=== PATIENT | male | born 1970 | race Caucasian/White ===

== ENCOUNTER 2019-07-02 01:34 | Inpatient (IN) | payer OTHER ==
[2019-07-02] VITALS (60 sets, daily range): BP systolic 43–119; BP diastolic 19–73
[~2019-07-02] VITALS: Ht 177.8 cm; Wt 75.7 kg
--- NOTE | 2019-07-02 01:34 | NUR ---
PT POLA ALS. TAKEN TO BED 10
--- NOTE | 2019-07-02 01:37 | NUR ---
48 Y/O BIBA ALOC. NON VERBAL. TRACH TO VENT. GCS 3. PUPILS UNEQUAL, NO TRACKING NOTED. HYPOTENSIVE. TACHYPNEA. LUNG SOUNDS CRACKLES ON L LOWER LOBE. ANANT CATH ON R UPPER CHEST, GTUBE SITE LEAKING. SKIN IS ASHEN COLOR, WARM AND DRY. ACTIVE BOWEL SOUNDS. NO FEVER NOTED. 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 R LUNG REMOVAL 03/23/19 ALLERGIES: IODINATED CONTRAST MEDIA, PIPERACILLIN, TAZOBACTAM, VANCOMYCIN
--- NOTE | 2019-07-02 01:50 | NUR ---
EKG PERFORMED AT BEDSIDE
--- NOTE | 2019-07-02 01:52 | NUR ---
Dr. Reeder examining patient.
[2019-07-02] MEDS ORDERED: NACL 0.9% 1,000 ML IV ONE (01:56)
--- NOTE | 2019-07-02 01:56 | NUR ---
CALLED RADIOLOGY FOR CODE BRAIN STAT HEAD CT
--- NOTE | 2019-07-02 02:06 | NUR ---
PT TAKEN TO CT
[2019-07-02 02:18] LABS: HEMATOCRIT 24.5 % (36-52); MEAN CORPUSCULAR HEMOGLOBIN 31 pg (27-31); MEAN CORPUSCULAR HGB CONC 33 g/dL (33-37); MEAN CORPUSCULAR VOLUME 93.8 fL (80-94); PLATELET COUNT (AUTO) 124 K/uL (140-450); RED BLOOD CELL COUNT(AUTO) 2.61 MIL/uL (4.20-6.10)
--- NOTE | 2019-07-02 02:22 | NUR ---
PATIENT BACK FROM CT.
[2019-07-02 02:25] LABS: PROTHROMBIN TIME 11.5 secs (10.8-13.4)
[2019-07-02 02:32] LABS: WHITE BLOOD COUNT (AUTO) 2.3 K/uL (4.8-10.8)
[2019-07-02 02:33] LABS: RED CELL DISTRIBUTION WIDTH 20.7 % (11.6-13.7)
[2019-07-02 02:34] LABS: ALBUMIN 2.6 g/dL (3.4-5.0); ANION GAP 19.9 (8-16); CARBON DIOXIDE 21.1 mmol/L (21-32); CREATININE 1.2 mg/dL (0.6-1.3); EOSINOPHILS % (MANUAL) 1 % (0-4); LYMPHOCYTES % (MANUAL) 14 % (20-46); METAMYELOCYTES % 5 % (0-0); MONOCYTES % (MANUAL) 11 % (5-12); TOTAL BILIRUBIN 4.5 mg/dL (0.0-1.0)
[2019-07-02 02:36] LABS: MYELOCYTES % 5 % (0-0)
[2019-07-02 02:44] LABS: APPEARANCE,URINE SL CLOUDY (CLEAR); BILIRUBIN,URINE 2+ (NEGATIVE); BLOOD, URINE 3+ (NEGATIVE); COLOR,URINE DARK YELLOW (YELLOW); LEUKOCYTE ESTERASE ,URINE TRACE (NEGATIVE); NITRITE, URINE POSITIVE (NEGATIVE); UGLUCOSE TRACE (NEGATIVE)
--- NOTE | 2019-07-02 02:49 | NUR ---
CALLED MARTHA S/W KAREN ROBERT REGARDING ADDITONAL PT INFORMATION. PER JAKOB, SHE WOULD FAX OVER ALL DOCUMENTS PERTAINING TO PT CARE.
--- NOTE | 2019-07-02 03:00 | NUR ---
XR AT BEDSIDE.
[2019-07-02] MEDS ORDERED: NACL 0.9% 1,500 ML IV ONE (03:05)
[2019-07-02] MEDS ORDERED: LEVOFLOXACIN 750 MG/D5W PREMIX 150 ML IV ONE (03:05)
--- NOTE | 2019-07-02 03:32 | NUR ---
DR. HERNÁNDEZ AND WOMEN'S MINISTRY DIRECTOR Varsha DE LUNA WITH PT FAMILY IN [facility]
[2019-07-02] MEDS ORDERED: NOREPINEPHRINE 8 MG in DEXTROSE 5% 250 ML IV PRN (04:30)
[2019-07-02] MEDS ORDERED: fentaNYL 0.05 MG/ML VIAL IVP ONE (04:30)
[2019-07-02] MEDS ORDERED: NOREPINEPHRINE 4 MG/4 ML VIAL IV ONE (04:32)
[2019-07-02] MEDS ORDERED: NACL 0.9% 1,000 ML IV SCH ×3 (04:59→06:55)
[2019-07-02] MEDS ORDERED: HYDROcodone/APAP 5/325 MG 1 TAB TAB PO PRN (05:00)
[2019-07-02] MEDS ORDERED: ONDANSETRON 4 MG/2 ML VIAL IM/IVP PRN (05:00)
[2019-07-02] MEDS ORDERED: DOCUSATE SODIUM 100 MG GELCAP PO PRN (05:00)
[2019-07-02] MEDS ORDERED: MORPHINE SULFATE 2 MG/ML SYR IVP PRN (05:00)
[2019-07-02] MEDS ORDERED: ACETAMINOPHEN 325 MG TAB PO PRN (05:00)
[2019-07-02] MEDS ORDERED: DEXTROSE 50% 50 ML SYR IVP PRN (05:35)
[2019-07-02] MEDS ORDERED: ALBUTEROL SULFATE/IPRATROPIU 3 ML SOL IH PRN (05:35)
--- NOTE | 2019-07-02 05:40 | NUR ---
Patient will be admitted to care of DR ARIAS. Admited to ICU. Will go to room ICU - 1 . Belongings list completed. Report given to JIM JONES.
--- NOTE | 2019-07-02 05:45 | NUR ---
RECEIVED PT FROM HANNAH JONES, IN ER. PT TRANSFERRED VIA GURNEY. LETHARGIC, UNABLE TO FOLLOW SIMPLE COMMANDS. RT PUPIL 3MM, SLUGGISH RESPONSE. LT PUPIL 4MM, SLUGGISH RESPONSE. NON-VERBAL, TRACH TO VENT WITH VENT SETTINGS FOLLOWS: FI02 @ 25, TV 500, RT 16, PEEP 5. SPO2 @ 100%. SUCTIONED DARK-BROWN, CARSON COLORED THICK SECRETIONS FROM ORAL CAVITY AND TRACH. ANANT CATH NOTED TO RT CHEST INFUSING LEVOPHED @ 10MCG/KG/HR. BP 89/46. 22G PERIPHERAL IV TO RT HAND PATENT AND NON-INFILTRATED. LUNGS COARSE THROUGHOUT. RLL SOUNDS ABSENT D/T S/P RT LOWER LOBECTOMY. BOWEL SOUNDS ACTIVE X4. ABD SOFT, NON-DISTENDED AND NON-TENDER. G-TUBE IN PLACE WITH SURROUNDING WHITE/BLOODY DISCHARGE. RESIDUAL 30 ML FROTHY, BLOOD-COLORED REMOVED AND REPLACED. SEVERE WEAKNESS TO LUE/LLE/RLE. PT HAS SOME CONTROL OF RUE. FAMILY IN WAITING ROOM PER WAITER/WAITRESS INFORMAL. MD MCGILL AT BEDSIDE @ THIS TIME
[2019-07-02] MEDS ORDERED: DEXT 5% /NACL 0.9% 1,000 ML IV SCH (05:50)
[2019-07-02] MEDS ORDERED: PRO5 PO (05:59)
[2019-07-02] MEDS ORDERED: DEC4 PO (05:59)
[2019-07-02] MEDS ORDERED: FENT100T TD (05:59)
[2019-07-02] MEDS ORDERED: GABA300C PO ×2 (05:59→06:12)
--- NOTE | 2019-07-02 06:00 | NUR ---
BP 81/37 HR 90 LEVOPHED DRIP INCREASED TO 14 MCG/MIN, BP RECHECKED @ 0605 BP 89/40 HR 98; LEVOPHED INCREASED TO 16 MCG/MIN. NO ACUTE DISTRESS @ THIS TIME, FLACC 0 WILL CONTINUE TO OBSERVE
[2019-07-02 06:06] LABS: CHOL/HDL RATIO 3.1 (1-4.5); FREE T4 (FREE THYROXINE) 0.92 ng/dL (0.76-1.46); MAGNESIUM 2.8 mg/dL (1.8-2.4); PHOSPHORUS 4.9 mg/dL (2.5-4.9); THYROID STIMULATING HORMONE 3.16 uIU/mL (0.34-3.74)
--- NOTE | 2019-07-02 06:10 | NUR ---
REASSESSED PT BP 104/58 HR 99 NO ACUTE DISTRESS NOTED @ THIS TIME.
[2019-07-02] MEDS ORDERED: MIRABULK PO (06:12)
[2019-07-02] MEDS ORDERED: FAMO-90 PO (06:12)
[2019-07-02] MEDS ORDERED: SODI100076 PO (06:12)
[2019-07-02] MEDS ORDERED: DOCU-300 PO (06:12)
[2019-07-02] MEDS ORDERED: ONDA4TAB PO (06:12)
[2019-07-02] MEDS ORDERED: FLO.1 PO (06:12)
[2019-07-02] MEDS ORDERED: HYDR-5092 PO ×2 (06:12→08:25)
[2019-07-02] MEDS ORDERED: ALPR0.252 PO (06:12)
--- NOTE | 2019-07-02 06:40 | NUR ---
BP 68/23 HR 99 INCREASED LEVOPHED DRIP TO 18 MCG/MIN NOTIFIED MD, X2 NS BOLUS ORDERED NEOSYNEPHRINE DRIP ORDERED.
--- NOTE | 2019-07-02 06:45 | NUR ---
REASSESSED PT; BP 94/56 HR 100 NEW PIV STARTED 20G TO R FA PATENT, X2 NS BOLUS INFUSING. WILL CONTINUE TO OBSERVE.
[2019-07-02] MEDS ORDERED: PHENYLEPHRINE 10 MG in NACL 0.9% 250 ML IV PRN (06:55)
--- NOTE | 2019-07-02 07:02 | NUR ---
Called PICLiss JONES ([phone]), and zara
--- NOTE | 2019-07-02 07:15 | NUR ---
PT FAMILY @ BEDSIDE UPDATED REGARDING PT CONDITION.
--- NOTE | 2019-07-02 07:30 | NUR ---
RECEIVED PT REPORT FROM PAULA JONES. PT IS TRACH TO VENT, PUPIL UNEQUAL R 3MM, L 4MM, SLUGGISH RESPONSE. NON-VERBAL, TRACH TO VENT: FIO2 25%, TV 500, RT 16, PEEP 5. O2 SAT 100%. LUNG SOUNDS CRACKLES AND COARSE. TRACH SUCTION DONE, OBTAINED MINIMAL AMOUNT OF BROWN SECRETION. ANANT CATH NOTED TO RT CHEST INFUSING LEVOPHED AT 18MCG/MIN. PERIPHERAL IV 22G TO R HAND AND R FA 20G, BOTH ARE PATENT AND ASYMPTOMATIC, REINFORCED DRESSING WITH TAPE. PT IS RECEIVING NS BOLUS. SCAR NOTED TO RIGHT UA AND RIGHT FLANK. RECENT CRANIOTOMY. PT OPEN EYES TO LIGHT PAIN. FOLLOWS SOME SIMPLE COMMANDS. LEFT HEMIPARESIS. BOWEL SOUNDS ACTIVE. ABD FIRM, NON-DISTENDED. G-TUBE IN PLACE WITH DARK RED FLUID INSIDE THE TUBE, ALSO LEAKING DARK RED FLUID FROM G TUBE SITE. SPRAGUE CATH IN PLACE, VERY LOW URINE OUTPUT. MADE DR MCGILL AWARE OF LOW URINE OUTPUT. TEMP 98.7F, SKIN DRY AND INTACT. REPOSITIONED PT. FALL PRECAUTIONS IN PLACE. WILL CONTINUE TO MONITOR.
--- NOTE | 2019-07-02 07:31 | NUR ---
RECIVED PT ON VENT WITH SETTINGS CHARTED BREATH SOUNDS PRESENT BILAT COARSE SXN PT WITH MIN AMT RUST COLERED SECS TRACH SITE SECURE AMBU BAG BEDSIDE VENT PLUGGED INTO RED OUTLET WILL CONTINUE TO MONITOR PT ON VENT
--- NOTE | 2019-07-02 07:42 | NUR ---
DR ARIAS AND MEDICAL TEAM AT BEDSIDE FOR ROUNDS, MADE AWARE OF ABD DISTENTION AND BLOODY DRAINAGE FROM GT SITE. THEY WILL ORDER ABD US.
[2019-07-02] MEDS ORDERED: metroNIDAZOLE 500 MG/NS PREMIX 100 ML IV SCH (08:00)
[2019-07-02] MEDS ORDERED: ALPR0.252 GT (08:25)
[2019-07-02] MEDS ORDERED: FAMO-90 GT (08:25)
[2019-07-02] MEDS ORDERED: [UNRECOGNIZED DRUG - CODE] PO (08:25)
[2019-07-02] MEDS ORDERED: DOCU-299 GT (08:25)
[2019-07-02] MEDS ORDERED: FLUD0.1T2 GT (08:25)
--- NOTE | 2019-07-02 08:30 | NUR ---
PATIENT HAS BEEN SCREENED AND CATEGORIZED HIGH NUTRITION RISK. PATIENT WILL BE SEEN WITHIN 1-2 DAYS OF ADMISSION. 07/02/19-07/03/[address]
[2019-07-02] MEDS ORDERED: PANTOPRAZOLE 40 MG INJ VIAL IVP SCH (09:00)
[2019-07-02] MEDS ORDERED: fentaNYL 0.1 MG/HR PATCH TD SCH (09:00)
--- NOTE | 2019-07-02 09:00 | NUR ---
DR MEDLEY TALKED TO PT'S ABOUT PROGNOSIS AND COMFORT CARE. PT'S DAUGHTER SUSI ALSO PRESENT. DNA POLST FORM SIGNED BY PT'S MS. GAMEZ. PT'S FAMILY AGREED WITH MORPHINE DRIP, COMFORT CARE, AND TAKING VENTILATOR OFF.
--- NOTE | 2019-07-02 09:15 | NUR ---
Extension Course Coordinator Note: Basic Screen: Yes High Risk DC Screen Yes Name: DILLON GAMEZ Home Relationship: (CAPE [employer]DE[employer] SPEAKING) Pre-Admission Living Arrangements: SNF Prior ADL Total/Dependent Current Home Health Name/Tel: N/A Current DME/02 Name/Tel: HOSPITAL BED Current Hospice Name/Tel: N/A Current Dialysis Name/Tel: N/A Healthcare Decision Maker: Next of Kin Other: - DILLON GAMEZ Advance Directive No Physician Orders for Life Sustaining Treatment Form Yes Discipline: Case Mgt/Social Svcs Tentative Discharge Plan/Destination: SNF/ECF Other: [facility] Will require assistance post discharge: No Referred to Wheel Presser: No Tentative Discharge Plan Summary: Patient is a 48-year-old male admitted for sepsis. Patient has PMJHX of cebrebral hemorrhage, chronic respiratory failure, dysphagia, quadriplegia, lung canacer, and metastatic disease. [place] [facility] SW contacted Angelito from admissions at [facility] [phone]. Per Angelito, patient is a sub-acute patient, on a bed hold, and needs total care with ADLs. Patient is bed-ridden and is not alert/oriented at baseline. Patient is a trach to [facility] patient and his healthcare decision maker is Dillon Gamez [phone] who only speak Andorran. Alvareztemitope stated that patient's daughter Millie Martinez [phone] often translates. Tentative discharge plan is for patient to return to [facility]. No further needs identified. Signature: KATIA Prieto Date: Jul 02, 2019 Time: 09:14
[2019-07-02] MEDS: MORPHINE SULFATE 50 MG in NACL 0.9% 45 ML IV SCH ×3 (10:02→16:35)
--- NOTE | 2019-07-02 10:05 | NUR ---
DISCHARGE PLANNING: THIS IS A 48 Y/O MALE PATIENT FROM [facility] [place], WHO WAS BROUGHT IN DUE TO ALOC AND BLOOD IN TRACH AND G TUBE. PAST MEDICAL HISTORY CEREBRAL HEMORRHAGE. CHRONIC RESPIRATORY FAILURE, DYSPHAGIA, QUADRIPLEGIA, LUNG CA AND RIGHT TRICEPS MUSCLE EXTENSIVE SARCOMA AND METASTATIC DISEASE. INITIAL DIAGNOSIS OF SEPSIS. CURRENT LABS INCLUDE WBC 2.3, H/H 8.0/24.5, NA/K 133/5.0, BUN/CREA 34/1.2, LACTIC ACID 10.4. URINE, SPUTUM, AND BLOOD C/S PENDING. ON COMFORT MEASURES WITH MORPHINE DRIP. CONTACTED RICO ROJASLester AT [phone], ABLE TO SPEAK TO ANEUDY. I ASKED FOR THE ASSIGNED CM, SHE STATED IT WILL BE ANTONIO EL AT [phone]. NO ANSWER. LEFT MESSAGE. Addendum: 07/02/19 at 1117 by Sonya Fenton CM RECEIVED A CALL FROM KOLE, DISTRIBUTION SYSTEM OPERATOR AT [facility] STATING THAT PER FAMILY'S REQUEST THEY WANTED THE PATIENT TRANSFERRED CLOSER TO HOME AND THEIR SISTER FACILITY [facility] IS ABLE TO ACCEPT THIS PATIENT. INFORMED HER THAT THE PATIENT IS IN COMFORT MEASURES NOW.
--- NOTE | 2019-07-02 10:20 | NUR ---
PLACE DRAINAGE BAG OVER THE G TUBE SITE.
--- NOTE | 2019-07-02 10:52 | NUR ---
FNS SERVICES NO LONGER REQUIRED. IN CASE ANY CHANGES ARE MADE, CONTACT FNS. MINDY HOLDEN RD
--- NOTE | 2019-07-02 10:55 | NUR ---
PT'S FAMILY SET UP CREMATION SERVICE WITH [facility] [phone]. WILL CALL WHEN BODY IS RELEASED BY ELECTRIC TRUCKER.
--- NOTE | 2019-07-02 11:20 | NUR ---
VENTILATOR DISCONNECTED BY RT [place]. CHERELLE'ED WITH THE FAMILY.
--- NOTE | 2019-07-02 11:20 | NUR ---
removed pt from vent per dr mathew rn aware family at bedside
[2019-07-02] MEDS ORDERED: MORPHINE SULFATE IV PRN ×2 (16:45→16:47)
[2019-07-02] MEDS ORDERED: NACL 0.9% IV PRN ×2 (16:45→16:47)
--- NOTE | 2019-07-02 17:02 | NUR ---
PT WILL BE TRANSFERRED TO MED-SURG RM 116.
--- NOTE | 2019-07-02 17:55 | NUR ---
TRANSFERRED PT TO ROOM 116. STAYING WITH PT. PT HAS TELE MONITOR AND VITALS MONITORED AT BEDSIDE.
--- NOTE | 2019-07-02 18:11 | NUR ---
EMPTIED G TUBE DRAINAGE BAG. LEAK IS FROM THE G TUBE SITE. THE AMOUNT IS ABOUT 50ML DARK RED CLOUDY FLUID.
--- NOTE | 2019-07-02 19:09 | NUR ---
REPORT GIVEN TO HEALTH AND SAFETY MANAGER KAREN THOMPSON.
--- NOTE | 2019-07-02 19:10 | NUR ---
RECEIVED BEDSIDE REPORT FROM SYD JONES. PT IS AAOX0. EYES CLOSED NON RESPONSIVE. PT CODE STATUS CHANGED TO DNR D/T POOR PROGNOSIS TODAY ON 07/02/2019. DX SEPSIS. COMING FROM [facility]. PT HX: METASTIC SARCOMA X 3YEARS AGO REMOVAL OF R TRICEP AND R LOWER LOBE LUNG WITH TRACH ON RA. PT HAD A CEREBRAL ANEURYSM AND HEMORRHAGE ON 06/08 PT HAD CRANIOTOMY WITH L HEMIPARESIS AT I WAS D/C TO [facility] FOR REHAB SINCE 06/22/2019. PT'S HEAD CT TODAY REVEALED LARGE RIGHT FRONTAL AND L PARIETAL HEMATOMA VS HEMORRHAGIA MASS WITH EDEMA. PT IS MED/SURG. ON COMFORT MEASURES. HAS R PORT-A-CATH MORPHINE DRIP 30M/H. PT WITH R FA 24G SL AND RT HAND 22G SL. SKIN IS INTACT. PT WITH SPRAGUE CATH TO GRAVITY WITH MINIMAL OUTPUT DARK ORANGE IN COLOR. PT WITH G-TUBE LEAKING WITH DRAINAGE BAG CURRENTLY NO DRAINAGE NOTED. VS: 59/36 HR 89 95% RA RR 20 96.9 FLACC 0. AND CHILDREN AT BEDSIDE. HAS PLANNED MORTUARY AT [facility]. POC DISCUSSED WITH FAMILY. CALL LIGHT IS WITHIN REACH. WILL MONITOR FREQUENTLY.
--- NOTE | 2019-07-02 20:15 | NUR ---
NO CHANGE IN PTS CONDITION. REMAINS ON MORPHINE DRIP 30ML/H. FLACC 0 RR 18 SAT 95% RA B/P IN LOW 60S HR 88. ADDRESSED PT'S CONCERNS REGARDING MORTUARY. CONFIRMED PT'S FAMILY AGREEABLE WITH [phone]
--- NOTE | 2019-07-02 21:49 | NUR ---
VS: 67/40 HR 79 88%RA RR 20 FLACC 0. MORPHINE DRIP REMAINS ON 30MG/H. FAMILY IS AT BEDSIDE. WILL CONTINUE TO MONITOR.
[2019-07-03] VITALS: BP 58/34
--- NOTE | 2019-07-03 | NUR ---
B/P TRENDING DOWN SAT 85% RR 22 MORPHINE DRIP 30ML/H. FAMILY IS AT BEDSIDE.
--- NOTE | 2019-07-03 00:51 | NUR ---
BATCH STILL OPERATOR CALLED PT IS ASYSTOLE. WALKED IN TO ASSESS NO PULSE PALPABLE NO HEART BEAT AUSCULTATED. DOCTOR UPPA IN TO PRONOUNCE PATIENT. TIME OF AT 0051. PATIENT LAY FLAT. MORPHINE DRIP D/C. WILL TRY MEET FAMILY NEEDS.
--- NOTE | 2019-07-03 01:10 | NUR ---
CALLED [facility] SPOKE WITH LORNA. PER LORNA PT IS NOT ELIGIBLE FOR DONATION. CASE # [id number].
--- NOTE | 2019-07-03 01:20 | NUR ---
CALLED CUTTING MACHINE TENDER DECORATIVE SPOKE WITH PRAFUL. WILL WAIT FOR CALL BACK.
--- NOTE | 2019-07-03 01:45 | NUR ---
SPOKE WITH RATNA DAVISON RETAIL CLIENT MANAGER CASE #[id number]. BODY WAS RELEASED.
--- NOTE | 2019-07-03 02:00 | NUR ---
SPOKE WITH VICTORIANO FROM [place] [phone]. EST TIME FOR LOCK UP WORKER 2HOURS. FAMILY NOTIFIED.
--- NOTE | 2019-07-03 02:10 | NUR ---
IV CATH REMOVED AND INTACT. SPRAGUE CATH REMOVED OUTPUT 30CC DARK ORANGE URINE. FAMILY AT BEDSIDE.
--- NOTE | 2019-07-03 03:00 | NUR ---
G-TUBE LEAKING EMPTIED 150CC OF DARK RED DRAINAGE. TRACH REMOVED DEFLATED BALLOON 2CC OF AIR.PT WAS CLEANED AND DRESSED PER REQUEST OF FAMILY. FAMILY STEPPED OUT AT THIS TIME.
[2019-07-03] MEDS ORDERED: LEVOFLOXACIN 750 MG/D5W PREMIX 150 ML IV SCH (04:00)
--- NOTE | 2019-07-03 04:00 | NUR ---
AND DAUGHTER RETURN AND WILL REMAIN AT BEDSIDE UNTIL MORTUARY PIPELINE CONSTRUCTION INSPECTOR PATIENT'S BODY. ALL NEEDS MET. WILL CONTINUE TO MONITOR.
--- NOTE | 2019-07-03 04:42 | NUR ---
[facility] AND DAUGHTER WERE AT BEDSIDE. ARM BAND REMOVED. PT'S BODY OFF UNIT AT THIS TIME.
[2019-07-03 08:31] LABS: FOLIC ACID 17.1 ng/mL (>3.0)
== END 2019-07-03 04:42 | disposition expired | DRG 720 ==
LOC: MED 01:34 → MIC 04:37 → MTU 17:50
PROVIDERS: ADMIT General Practice; ATTEND General Practice
PROC: 5A1935Z Respiratory Ventilation, Less than 24 Consecutive Hours (ICD-10-PCS; principal; 2019-07-02)
PROC: 0BH17EZ Insertion of Endotracheal Airway into Trachea, Via Natural or Artificial Opening (ICD-10-PCS; 2019-07-02)
DX: A41.9 Sepsis, unspecified organism (principal); J96.20 Acute and chronic respiratory failure, unspecified whether with hypoxia or hypercapnia; I46.9 Cardiac arrest, cause unspecified; I62.9 Nontraumatic intracranial hemorrhage, unspecified; E43 Unspecified severe protein-calorie malnutrition; D61.810 Antineoplastic chemotherapy induced pancytopenia; J18.9 Pneumonia, unspecified organism; D61.818 Other pancytopenia; Z92.3 Personal history of irradiation; G82.50 Quadriplegia, unspecified; G93.41 Metabolic encephalopathy; R65.20 Severe sepsis without septic shock; R13.10 Dysphagia, unspecified; Z68.24 Body mass index [BMI] 24.0-24.9, adult; E80.6 Other disorders of bilirubin metabolism; Z88.8 Allergy status to other drugs, medicaments and biological substances; Z85.118 Personal history of other malignant neoplasm of bronchus and lung; Z87.01 Personal history of pneumonia (recurrent); Z66 Do not resuscitate; Z87.891 Personal history of nicotine dependence; Z90.2 Acquired absence of lung [part of]; Z92.21 Personal history of antineoplastic chemotherapy; R74.0 Nonspecific elevation of levels of transaminase and lactic acid dehydrogenase [LDH]; N17.9 Acute kidney failure, unspecified; N18.9 Chronic kidney disease, unspecified; N39.0 Urinary tract infection, site not specified
CPT/HCPCS: 36415; 70450; 71045; 80053; 81001; 82150; 82607; 82728; 82746; 82948; 83036; 83540; 83605; 83690; 83735; 83880; 84100; 84134; 84439; 84443; 84484; 85025; 85045; 85610; 87040; 87070; 87075; 87081; 87086; 87186; 87205; 93005; 94003; 96365; 96375; 99291; C9113; J1956; J2270; J2370; J3010; J3490; J7030; Q0092